=== PATIENT | female | born 1995 | race African-American/Black ===

== ENCOUNTER 2024-02-28 11:49 | Emergency (ER) | payer SELFPAY ==
[2024-02-28] MEDS ORDERED: HYDROcodone/Acetaminophen 5/325 mg Tablet ONE (14:17)
== END 2024-02-28 15:30 | disposition home or self-care (01) ==
LOC: ERS 11:49
DX: K12.2 Cellulitis and abscess of mouth (principal)
CPT/HCPCS: 99282